=== PATIENT | female | born 1995 | race Caucasian/White ===

== ENCOUNTER 2016-06-10 14:54 | Outpatient (CLI) | payer OTHER ==
[~2016-06-10] VITALS: Ht 167.6 cm; Wt 109.1 kg
[~2016-06-10 14:54] MED LIST: EPIPEN ADU0.3 MG/0.3 IM; PEPCID40 MG PO; PREDNISONE5 MG PO; PREDNISONE50 MG PO
[2016-06-10 15:22] VITALS: BP 138/72
[2016-06-10] MEDS ORDERED: PRENATAL TABLE1 EAC3 PO (15:42)
[2016-06-10] MEDS ORDERED: SYNTHROID88 MCG PO (15:42)
[2016-06-10 16:18] LABS: ADD MIUA? YES; BILIRUBIN NEGATIVE; BLOOD NEGATIVE; COLOR YELLOW ((YELLOW)); GLUCOSE (STRIP) NEGATIVE; KETONES NEGATIVE; LEUKOCYTES NEGATIVE; NITRITE NEGATIVE; PROTEIN (STRIP) NEGATIVE; SPECIFIC GRAVITY 1.004 (1.000-1.030); UROBILINOGEN 0.2 MG/DL (0.2-1.0)
[2016-06-10 16:24] LABS: BACTERIA NONE SEEN; CASTS NONE SEEN /LPF; CRYSTALS NONE SEEN; EPITHELIAL CELLS RARE; MUCUS NONE SEEN; PATHOLOGICAL CAST NONE SEEN; RED BLOOD CELLS 0-5 /HPF (0-5); SMALL ROUND CELL NONE SEEN; UCUL ADDED? NO; WHITE BLOOD CELLS 0-5 /HPF (0-5); YEAST-LIKE CELL NONE SEEN
[2016-06-10 17:11] LABS: AMPHETAMINES QUANT VALUE 0 NG/ML; BARBITUATES QUANT VALUE 0 NG/ML; BENZODIAZEPINES QUANT VALUE 0 NG/ML; BENZODIAZEPINES, URINE SCREEN Negative (200 ng/mL); MARIJUANA QUANT VALUE 0 NG/ML; OPIATES QUANTITATIVE VALUE 0 NG/ML; PHENCYCLIDINE QUANT VALUE 0 NG/ML
[2016-06-10 17:17] VITALS: BP 121/72
== END 2016-06-10 19:20 | disposition home or self-care (01) ==
LOC: EME 14:54 → EDSTATUS 15:06 → LDRP-OP 15:07 → 2WEST 15:08
PROVIDERS: Advanced Practice Midwife
DX: M54.5 Low back pain (principal); O99.89 Other specified diseases and conditions complicating pregnancy, childbirth and the puerperium; Z3A.20 20 weeks gestation of pregnancy
CPT/HCPCS: 59025; 76805; 81003; 87086; G0378